=== PATIENT | male | born 1975 | race Caucasian/White ===

== ENCOUNTER 2024-01-14 23:39 | Emergency (ER) | payer MEDICAID ==
[~2024-01-14] VITALS: Ht 182.9 cm; Wt 86.0 kg
[2024-01-15 00:13] VITALS: BP 150/88; PULSE 80; RESP 18; TEMP 98.5; O2SAT 99
[2024-01-15] MEDS ORDERED: IVER3TAB2 MT (00:37)
[2024-01-15] MEDS ORDERED: DIPH25CA83 MT (00:37)
[2024-01-15] MEDS ORDERED: PETR368J TP (00:37)
[2024-01-15] MEDS ORDERED: CLOB15CR4 TP (00:37)
== END 2024-01-15 00:54 | disposition home or self-care (01) ==
LOC: ER 23:39
DX: B86 Scabies (principal)
CPT/HCPCS: 99283